=== PATIENT | female | born 1960 | race Hispanic/Latino ===

== ENCOUNTER → 2024-07-31 | Outpatient (REF) | payer BC ==
[~2024-07-31] MED LIST: CENTRUM ADULTS1 EACH PO; CRESTOR10 MG PO; ETODOLAC400 M1 PO; EXCEDRIN MIGRA1 EAC3 PO; GEMTESA75 MG PO; IBUPROFEN200 MG PO; LOSARTAN POTASS25 MG PO; TYLENOL325 MG PO; VITAMIN C1000 MG PO; [UNRECOGNIZED DRUG - OTHER] PO
== END ==
LOC: MAMMO 08:02
PROVIDERS: ATTEND Family Medicine
DX: Z12.31 Encounter for screening mammogram for malignant neoplasm of breast (principal)
CPT/HCPCS: 77067